=== PATIENT | female | born 1995 | race Caucasian/White ===

== ENCOUNTER 2020-10-14 09:48 | Inpatient (IN) ==
[2020-10-17] MEDS ORDERED: OXYTOCIN/0.9 % SODIUM CHLORIDE 30 UNITS/500 ML BAG IV ONE (14:52)
[2020-10-17] MEDS ORDERED: BUTORPHANOL TARTRATE 2 MG/ML VIAL IV PRN ×2 (14:52)
[2020-10-17] MEDS ORDERED: ONDANSETRON 4 MG TAB.RAPDIS PO PRN (14:52)
[2020-10-17] MEDS ORDERED: RINGER'S SOLUTION,LACTATED 1,000 ML IV ONE (14:52)
[2020-10-17] MEDS ORDERED: LIDOCAINE HCL 50 ML VIAL PERI PRN (14:52)
[2020-10-17] MEDS: RINGER'S SOLUTION,LACTATED 1,000 ML IV PRN ×2 (15:08→23:47)
[2020-10-17] MEDS: MISOPROSTOL 100 MCG TABLET VG PRN ×2 (15:10→19:12)
[2020-10-18] MEDS ORDERED: NALOXONE HCL 1 MG/1 ML SYRG IV PRN (01:05)
[2020-10-18] MEDS ORDERED: BUPIVACAINE HCL/0.9 % NACL/PF 250 ML EP PRN (01:05)
[2020-10-18] MEDS ORDERED: ONDANSETRON HCL/PF 2 MG/ML VIAL IV PRN (01:05)
[2020-10-18] MEDS ORDERED: BUPIVACAINE HCL/PF 30 ML VIAL EP SCH (01:15)
--- NOTE | 2020-10-18 01:49 | ANES ---
Anesthesia Pre Procedure Eval Vitals/Labs: Last Vital Signs Temp 36.6 C 10/18/20 01:24 Pulse 96 10/18/20 01:24 Resp 22 H 10/18/20 01:24 BP 123/76 10/18/20 01:24 Pulse Ox 99 10/18/20 01:24 HOME MEDICATIONS ferrous sulfate 325 mg (65 mg iron) tablet 325 mg PO DAILY 08/15/20 [Last Taken 10/17/20] Vits96/Iron Fum/Folic [ S] 1 tab PO DAILY 10/17/20 [Last Taken 10/17/20] Pyridoxine HCl (Vitamin B6) [Vitamin B-6] 25 mg PO DAILY 10/17/20 [Last Taken 10/17/20] Allergies/Adverse Reactions: Allergies Allergy/AdvReac Type Severity Reaction Status Date / Time No Known Allergies Allergy Verified 10/11/20 11:15 - Planned Procedure Planned Procedure: Labor Epidural Medication List Reviewed:: Yes Allergies Verified: Yes Medical History (Last Reviewed 10/18/20 @ 01:49 by Cyrus Sanford CRNA) ADD (attention deficit disorder) Onset Date: Unknown No pertinent past medical history Surgical History (Last Reviewed 10/18/20 @ 01:49 by Cyrus Sanford CRNA) [place] teeth extracted Onset Date: Unknown Family History (Last Reviewed 10/18/20 @ 01:49 by Cyrus Sanford CRNA) Mother Hypothyroidism Asthma Father Hypertension - Anesthesia Assessment and Plan ASA Class: PS, II Anesthesia Type Plan: Epidural
--- NOTE | 2020-10-18 02:09 | ANES ---
Anesthesia Procedure Note Procedure Note: ANESTHESIA PROCEDURE NOTE Date of Procedure: 10/18/2020. Time of procedure: 154. Performed by: Cyrus Sanford CRNA Supervisor [employer]works Assembly: None. Preprocedure diagnosis: Active labor. Post procedure diagnosis: Same. Procedure: Insertion of labor epidural. Indications: The patient is a 25-year-old female in active labor requesting labor epidural for pain management. Findings: See below. Details of the procedure: The patient was placed in a sitting position. DuraPrep as well as Betadine swabs X3 was applied to the patient's back. Patient was then draped in a sterile fashion. Lidocaine 1% was infiltrated to the skin and subcutaneous tissues at the level of the L3-4 interspace. The epidural space was identified using a 18-gauge Tuohy needle with [id number] technique. Epidural catheter was inserted to a depth of 12 centimeters at skin. Negative test dose was elicited using 3 mL of 1.5% preservative-free lidocaine plus epinephrine 1 200,000. The epidural catheter was then taped and secured in place. A loading dose of 8 mL of 0.25% preservative-free bupivacaine was administered to the epidural catheter after negative aspiration for blood and CSF. EBL: Minimal. Fluids: N/A. Specimen: N/A. Post procedure condition: The patient tolerated the procedure well. No complications were noted. Thank you for this consultation. Cyrus Sanford CRNA
--- NOTE | 2020-10-18 02:09 | ANES ---
Post Anesthesia Assessment - Vital Signs Vitals: Last Vital Signs Temp 36.6 C 10/18/20 01:24 Pulse 96 10/18/20 01:24 Resp 22 H 10/18/20 01:24 BP 123/76 10/18/20 01:24 Pulse Ox 99 10/18/20 01:24 Airway Patency: Normal - Mental Status Level Of Consciousness: Awake - N/V Assessment Nausea/Vomiting Presence: None Dehydration:: No
[2020-10-18] MEDS: RINGER'S SOLUTION,LACTATED 1,000 ML IV PRN ×2 (04:48→13:12)
--- NOTE | 2020-10-18 08:02 | HP ---
Chief Complaint - Chief Complaint Date of Service: 10/18/20 Time of Service: 07:58 Chief Complaint: Labor induction, elective History of Present Illness: 25 year old at 39w 5d who presented to labor and delivery for an elective IOL. She has regular ctx on pitocin. She denies vb or lof. Fetus is active. Medical History (Last Reviewed 10/18/20 @ 07:59 by Torie Rivers MD) ADD (attention deficit disorder) Onset Date: Unknown No pertinent past medical history Surgical History: Surgical History (Last Reviewed 10/18/20 @ 07:59 by Torie Rivers MD) [place] teeth extracted Onset Date: Unknown Family History: Family History (Last Reviewed 10/18/20 @ 07:59 by Torie Rivers MD) Mother Hypothyroidism Asthma Father Hypertension Social History: (Last Reviewed 10/18/20 @ 07:59 by Torie Rivers MD) Social History: Marital status: Single household members: significant other current occupational status: unemployed Service: No Tobacco: Smoking Status: Former smoker Alcohol: alcohol intake: never Substance Use: substance use type: does not use Dietary Habits: caffeine: Yes caffeine comment: 2 weekly Type: coffee Review Of Systems (GEN) - Review of Systems Generalized/Overall Review: Present: No Symptoms Reported Misc: All systems neg except as marked Allergies/Adverse Reactions: Allergies Allergy/AdvReac Type Severity Reaction Status Date / Time No Known Allergies Allergy Verified 10/11/20 11:15 Home Medications: HOME MEDICATIONS ferrous sulfate 325 mg (65 mg iron) tablet 325 mg PO DAILY 08/15/20 [Last Taken 10/17/20] Vits96/Iron Fum/Folic [ S] 1 tab PO DAILY 10/17/20 [Last Taken 10/17/20] Pyridoxine HCl (Vitamin B6) [Vitamin B-6] 25 mg PO DAILY 10/17/20 [Last Taken 10/17/20] Exam - Exam Vital Signs: Vital Signs - Last Taken Temp 36.6 C 10/18/20 01:24 Pulse 96 10/18/20 01:24 Resp 22 H 10/18/20 01:24 BP 123/76 10/18/20 01:24 Pulse Ox 99 10/18/20 01:24 Constitutional: Present: Alert, Oriented x3, Cooperative, No distress ENT Exam: Present: hearing grossly normal Eye Exam: bilateral eye: normal inspection Neck: Present: normal inspection Respiratory: Present: lungs clear, normal breath sounds, no respiratory distress Cardiovascular/Chest: Present: regular rate, rhythm Abdomen: Present: soft, nontender, nondistended /Rectal: Present: Other - 6/100/-1 AROM for a small amount of clear fluid Extremity: Present: non-tender, no calf tenderness Skin Exam: Present: normal color, warm/dry, no cyanosis Neurologic: Present: alert, normal mood/affect, oriented x 3 Appearance: Present: appropriate appearance, appropriate insight, neat, no memory impairment Eye contact: Present: cooperative, good eye contact, normal speech Thoughts: Present: normal thought pattern, no apparent hallucination Diagnostic Studies: Laboratory Results Blood Type O Positive 10/17/20 15:35 Antibody Screen Negative 10/17/20 15:35 Assessment/Plan - Narrative Narrative: 25 year old at 39w 5d 1. Elective IOL: the patient received two doses of misoprostol and is currently on pitocin. AROM done for augmentation 2. GBS negative: prophylaxis not indicated FHT cat 1 - Assessment/Plan (1) 39 weeks gestation of Problem: Acute (2) Encounter for elective induction of labor Problem: Acute (3) Susceptible to Varicella (non-immune), currently in third trimester Problem: Acute (4) Anemia during Problem: Acute (5) Normal Pap smear Problem: Acute (6) Susceptible to Varicella (non-immune), currently in second trimester Problem: Acute
--- NOTE | 2020-10-18 17:47 | OR ---
Vacuum-Assist Vaginal Delivery Date:: 10/18/20 Time:: 17:44 Pre Op Diagnosis/Indication for use:: Prolonged second stage Heart Rate Interpretation:: Reassuring EFW:: 3400 grams Station:: +5 Position of the head: Direct OA Cervix:: The cervix was completely dilated and effaced. Maternal- size appropriate for application. The bladder was emptied. Counseling:: Patient counseling: Indications discussed and questions answered. The patient consented to operative delivery. - Details of Procedure: Cup Placement:: Flexion point identified. Cup choice appropriate for application site. Maternal tissue excluded from vacuum cup. Station at application:: +5 Position:: Direct OA Anesthesia Type: Epidural Laceration Type:: Perineal - Vacuum Application: Vacuum Used:: Mushroom Total Time of vacuum applications (minutes):: 1 - 12 seconds Maximum vacuum achieved: cm H Number of pulls/contractions:: 2 Number of involuntary releases:: 0 Vacuum event:: The vacuum was reduced between contractions. There was advancement in station with each pull. - Post Procedure Eval: Infant Sex: Female Weight (Grams): 3,372 Delivery Date: 10/18/20 Delivery Time: 17:27 Score 1 min: 8 Score 5 min: 9 Extraction successful:: Yes Amniotic Fluid Color: Clear Placenta Delivery: Spontaneous injury/anomalies:: No Maternal EBL:: 200 mL Shoulder Dystocia:: No Nuchal Cord: N/A - total vacuum applicaiton time was 72 seconds
[2020-10-18] MEDS ORDERED: BENZOCAINE/MENTHOL 81 SPRAY CAN TP PRN (18:08)
[2020-10-18] MEDS ORDERED: SENNOSIDES 8.6 MG TABLET PO PRN (18:08)
[2020-10-18] MEDS ORDERED: BISACODYL 10 MG SUPP.RECT RC PRN (18:08)
[2020-10-18] MEDS ORDERED: HYDROCORTISONE 30 APPL TUBE TP PRN (18:08)
[2020-10-18] MEDS ORDERED: GLYCERIN/WITCH HAZEL LEAF 40 APPL BOX TP PRN (18:08)
[2020-10-18] MEDS ORDERED: OXYTOCIN/0.9 % SODIUM CHLORIDE 30 UNITS/500 ML BAG IV ONE (18:08)
[2020-10-18] MEDS ORDERED: diphenhydrAMINE HCL 25 MG CAPSULE PO PRN (18:08)
[2020-10-18] MEDS ORDERED: HYDROcodone/ACETAMINOPHEN 1 EACH TABLET PO PRN (18:08)
[2020-10-18] MEDS: IBUPROFEN 800 MG TABLET PO PRN (19:27)
[2020-10-18] MEDS: HYDROcodone/ACETAMINOPHEN 1 EACH TABLET PO PRN (19:28)
[2020-10-18] MEDS: DOCUSATE SODIUM 100 MG CAPSULE PO SCH (21:33)
--- NOTE | 2020-10-19 07:36 | PN ---
Subjective - Date and Time Seen Date: 10/19/20 Time: 07:35 Subjective Narrative: Patient without complaints Objective Objective Narrative: See vital signs - Review of Systems Generalized/Overall Review: Reports: No Symptoms Reported Misc: All systems neg except as marked - Vitals Vitals: Last Vital Signs Temp 37.0 C 10/19/20 02:57 Pulse 92 10/19/20 02:57 Resp 18 10/19/20 02:57 BP 128/68 10/19/20 02:57 Pulse Ox 98 10/19/20 02:57 - Exam Constitutional: Present: Alert, Oriented x3, Cooperative, No distress Abdomen: Present: soft, nontender, nondistended - fundus is firm Extremity: Present: non-tender, no calf tenderness Skin Exam: Present: normal color, warm/dry, no cyanosis Neurologic: Present: alert, normal mood/affect, oriented x 3 Appearance: Present: appropriate appearance, appropriate insight, neat, no memory impairment Eye contact: Present: cooperative, good eye contact, normal speech Thoughts: Present: normal thought pattern Cauti Physician Documentation - Urinary Catheter Management Urethral ([place]) Urethral Indwelling: No Date of Insertion: 10/18/20 Time of Insertion: 02:30 Date of Removal: 10/18/20 Time of Removal: 17:20 Assessment/Plan Plan Narrative: PPD 1 s/p Doing well Discharge tomorrow - Problems/Diagnosis (1) 39 weeks gestation of Problem: Acute (2) Encounter for elective induction of labor Problem: Acute (3) Susceptible to Varicella (non-immune), currently in third trimester Problem: Acute (4) Anemia during Problem: Acute (5) Normal Pap smear Problem: Acute (6) Susceptible to Varicella (non-immune), currently in second trimester Problem: Acute
[2020-10-19] MEDS: DOCUSATE SODIUM 100 MG CAPSULE PO SCH ×2 (07:40→20:47)
[2020-10-19] MEDS: HYDROcodone/ACETAMINOPHEN 1 EACH TABLET PO PRN ×3 (07:40→20:51)
[2020-10-19] MEDS: IBUPROFEN 800 MG TABLET PO PRN ×2 (07:40→16:49)
[2020-10-19] MEDS: PRENATAL VITS96/IRON FUM/FOLIC 1 TAB TABLET PO SCH (09:38)
[2020-10-20] MEDS: DOCUSATE SODIUM 100 MG CAPSULE PO SCH ×2 (01:03→09:04)
[2020-10-20] MEDS: HYDROcodone/ACETAMINOPHEN 1 EACH TABLET PO PRN ×2 (04:11→10:45)
[2020-10-20] MEDS: IBUPROFEN 800 MG TABLET PO PRN ×2 (04:11→10:45)
[2020-10-20 08:22] VITALS: BP 104/64
--- NOTE | 2020-10-20 08:42 | PN ---
Subjective - Date and Time Seen Date: 10/20/20 Time: 08:40 Subjective Narrative: Patient without complaints Objective Objective Narrative: See vital signs - Review of Systems Generalized/Overall Review: Reports: No Symptoms Reported Misc: All systems neg except as marked - Vitals Vitals: Last Vital Signs Temp 36.4 C 10/20/20 08:15 Pulse 76 10/20/20 08:15 Resp 18 10/20/20 08:15 BP 104/64 10/20/20 08:15 Pulse Ox 97 10/20/20 08:15 - Exam Constitutional: Present: Alert, Oriented x3, Cooperative, No distress ENT Exam: Present: hearing grossly normal Neck: Present: normal inspection Abdomen: Present: soft, nontender, nondistended - fundus is firm Extremity: Present: non-tender, no calf tenderness Skin Exam: Present: normal color, warm/dry, no cyanosis Neurologic: Present: alert, normal mood/affect, oriented x 3 Appearance: Present: appropriate appearance, appropriate insight, neat, no memory impairment Eye contact: Present: cooperative, good eye contact, normal speech Thoughts: Present: normal thought pattern, no apparent hallucination Cauti Physician Documentation - Urinary Catheter Management Urethral ([place]) Urethral Indwelling: No Date of Insertion: 10/18/20 Time of Insertion: 02:30 Date of Removal: 10/18/20 Time of Removal: 17:20 Assessment/Plan Plan Narrative: PPD 2 s/p VAVD Doing well Discharge today - Problems/Diagnosis (1) 39 weeks gestation of Problem: Acute (2) Encounter for elective induction of labor Problem: Acute (3) Susceptible to Varicella (non-immune), currently in third trimester Problem: Acute (4) Anemia during Problem: Acute (5) Normal Pap smear Problem: Acute (6) Susceptible to Varicella (non-immune), currently in second trimester Problem: Acute
--- NOTE | 2020-10-20 08:46 | DS ---
OB Discharge Summary (1) 39 weeks gestation of Status: Acute (2) Encounter for elective induction of labor Status: Acute (3) Susceptible to Varicella (non-immune), currently in third trimester Status: Acute (4) Anemia during Status: Acute (5) Normal Pap smear Status: Acute (6) Susceptible to Varicella (non-immune), currently in second trimester Status: Acute Delivery Date: 10/18/20 Delivery Time: 17:27 :: 1 Para:: 1 Gestational weeks:: 39 Gestational days:: 5 Intrapartum Procedures: Anesthesia - Epidural, Vacuum-Assisted Procedures: None /OP Complications: No Complications Discharge Diagnosis: Term -Delivered, Other - 1st degree perineal laceration, right labial laceration (not repaired) - Discharge Information Date of Discharge: 10/20/20 Hospital Course: The patient presented for an elective IOL. She had ruptured prior to arrival. She progressed to complete dilation. She had a VAVD. She had no complications. Discharge Location: Home Disposition: Home self-care Activity on Discharge:: Activity as tolerated, Pelvic Rest Discharge Diet: General/regular food Additional Patient Instructions (free text): bertha Rivera follow up visit is November 15 at 3:[address] Silvestre Mares follow up appointment is Thursday at 9:[address] Stewart. Please arrive by 8:45 AM for paperwork. Complete Home Medications List: Complete Home Medication List: ferrous sulfate 325 mg (65 mg iron) tablet 325 mg PO DAILY 08/15/20 Vits96/Iron Fum/Folic [ S] 1 tab PO DAILY 10/17/20 Pyridoxine HCl (Vitamin B6) [Vitamin B-6] 25 mg PO DAILY 10/17/20 - Plan Discharge to:: Home Comment:: Routine Discharge Instructions Follow up in office in:: Other - 4 weeks - Information Weight (Grams): 3,372 Sex: Female Score 1 min: 8 Score 5 min: 9 Infant Complications: None Other Complications: vacuum assisted delivery
[2020-10-20] MEDS: PRENATAL VITS96/IRON FUM/FOLIC 1 TAB TABLET PO SCH (09:04)
== END 2020-10-20 12:55 | disposition home or self-care (01) | DRG 807 ==
LOC: EDSTATUS 14:15 → OBCLINIC 10-17 14:19 → OB 10-17 14:37 → MS 10-19 07:50
PROVIDERS: ADMIT Obstetrics & Gynecology; ATTEND Obstetrics & Gynecology